=== PATIENT | male | born 1955 | race Caucasian/White ===

== ENCOUNTER 2021-12-13 10:04 | Inpatient (IN) | payer BC ==
[~2021-12-13] VITALS: Ht 172.7 cm; Wt 115.9 kg
[2021-12-13 10:26] LABS: BASOPHILS % (AUTO) 0.8 % (0-1); EOSINOPHILS # (AUTO) 0.2 X10'3 (0-0.9); EOSINOPHILS % (AUTO) 3.6 % (0-6); HEMATOCRIT 46.7 % (42.0-52.0); HEMOGLOBIN 15.8 g/dl (14.0-17.9); LYMPHOCYTES # (AUTO) 1.1 X10'3 (1.1-4.8); LYMPHOCYTES % (AUTO) 21.4 % (21-51); MEAN CORPUSCULAR HEMOGLOBIN 31.5 PG (27.0-31.0); MEAN CORPUSCULAR HGB CONC 33.8 g/dL (33.0-36.5); MEAN CORPUSCULAR VOLUME 93.2 FL (78-98); MEAN PLATELET VOLUME 8.5 FL (7.4-10.4); MONOCYTES # (AUTO) 0.6 X10'3 (0-0.9); MONOCYTES % (AUTO) 11.8 % (2-12); NEUTROPHILS # (AUTO) 3.3 X10'3 (1.8-7.7); NEUTROPHILS % (AUTO) 62.4 % (42-75); PLATELET COUNT 192 X10'3 (140-440); RED BLOOD COUNT 5.01 X10'6 (4.70-6.10); RED CELL DISTRIBUTION WIDTH 12.9 % (11.5-14.5); WHITE BLOOD COUNT 5.2 X10'3 (4.5-11.0)
[2021-12-13 10:45] LABS: APTT 28 SECONDS (22-32)
[2021-12-13 10:48] LABS: ALANINE AMINOTRANSFERASE 96 U/L (12-78); ALBUMIN 4.1 G/DL (3.4-5.0); ALBUMIN/GLOBULIN RATIO 1.1 (1.1-1.5); ALKALINE PHOSPHATASE 86 IU/L (46-116); ANION GAP 11 (8-16); ASPARTATE AMINO TRANSFERASE 39 U/L (10-37); BILIRUBIN,TOTAL 0.5 MG/DL (0.1-1.0); BLOOD UREA NITROGEN 17 MG/DL (7-18); CALCIUM 9.3 MG/DL (8.5-10.1); CHLORIDE 106 MMOL/L (99-107); CREATININE 0.85 MG/DL (0.60-1.10); GLUCOSE 108 MG/DL (70-104); SODIUM 141 MMOL/L (135-145); TOTAL CARBON DIOXIDE 23.6 MMOL/L (24-32); TOTAL PROTEIN 7.8 G/DL (6.4-8.2); eGFR > 90 ML/MIN
[2021-12-13 10:54] LABS: POTASSIUM 4.2 MMOL/L (3.5-5.1)
[2021-12-13] MEDS ORDERED: potassium CL 10mEq/100ml bag 100 ML IV PRN (11:35)
[2021-12-13] MEDS ORDERED: magnesium hydroxide 30ml (MOM) UD suspension PO PRN (11:35)
[2021-12-13] MEDS ORDERED: magnesium 4gm in 100ml NS 100 ML IV PRN (11:35)
[2021-12-13] MEDS ORDERED: PERFLUTREN PROTEIN-A MICROSPHR (Optison) 0.22 MG/ML 3ML VIAL IV ONE (11:35)
[2021-12-13] MEDS ORDERED: acetaminophen 325mg tablet PO PRN ×2 (11:35)
[2021-12-13] MEDS ORDERED: metoclopramide 5 mg/ml inj IV PRN (11:35)
[2021-12-13] MEDS ORDERED: magnesium Cl slow-release 64mg tablet PO PRN (11:35)
[2021-12-13] MEDS ORDERED: morphine 2 MG/ML inj. syringe IV PRN ×2 (11:35)
[2021-12-13] MEDS ORDERED: mag hydrox/Alum hydrox/simeth 30ml oral suspension PO PRN (11:35)
[2021-12-13] MEDS ORDERED: bisacodyl 10mg suppository rectal RC PRN (11:35)
[2021-12-13] MEDS ORDERED: ondansetron/PF 4mg/2ml inj IV PRN (11:35)
[2021-12-13] MEDS ORDERED: acetaminophen 650mg rectal suppository RC PRN (11:35)
[2021-12-13] MEDS ORDERED: HYDROcodone/acetaminophen 5mg/325mg tablet PO PRN (11:35)
[2021-12-13] MEDS ORDERED: HYDROcodone/acetaminophen 10/325mg tab PO PRN (11:35)
[2021-12-13] MEDS ORDERED: POTASSIUM BICARB 20meq eff tab 20 MEQ TABLET.EFF PO PRN ×2 (11:35)
[2021-12-13] MEDS ORDERED: magnesium 2GM in 50ml NS 50 ML IV PRN (11:35)
[2021-12-13] MEDS ORDERED: ondansetron 4mg rapidly disintigrating tab PO PRN (11:35)
[2021-12-13] MEDS ORDERED: IODIXANOL 320 MG/ML INFUS..BTL 100ML IV ONE (11:54)
[2021-12-13 12:04] LABS: CLARITY,URINE CLEAR (Clear); COLOR,URINE YELLOW (Yellow); GLUCOSE, URINE NEGATIVE (Neg); KETONES,URINE NEGATIVE (Neg); LEUKOCYTE ESTERASE ,URINE NEGATIVE (Neg); NITRITES, URINE NEGATIVE (Neg); OCCULT BLOOD,URINE NEGATIVE (Neg); PROTEIN,URINE NEGATIVE (Neg); UROBILINOGEN,URINE 0.2 E.U/dL (0.2-1.0)
[2021-12-13 12:05] LABS: UA COLLECTION TYPE CLN CATCH MIDSTREAM
--- NOTE | 2021-12-13 12:15 | NUR ---
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
--- NOTE | 2021-12-13 12:47 | NUR ---
dr yuan at bedside.
[2021-12-13 13:39] LABS: MAGNESIUM 2.2 MG/DL (1.5-2.4); POTASSIUM 3.8 MMOL/L (3.5-5.1)
[2021-12-13] MEDS ORDERED: OLME1TAB54 PO (13:53)
[2021-12-13 17:02] VITALS: BP 151/89
--- NOTE | 2021-12-13 17:17 | NUR ---
Skin assessment performed with 2 nurses no skin issues present AK DIRECTOR EDUCATION and CW RN
[2021-12-13 18:00] VITALS: BP 158/79
--- NOTE | 2021-12-13 18:49 | NUR ---
Orientee documentation: I have reviewed and agree with all interventions, assessments performed and documented by MEME Blum II.
--- NOTE | 2021-12-13 19:10 | NUR ---
Patient in room PCU 3014. I have received report from Giovana TESFAYE and had the opportunity to ask questions and assume patient care.
[2021-12-13] MEDS: heparin, porcine 5000 units/ml vial SQ SCH (19:28)
[2021-12-13] MEDS: docusate sod 100mg capsule PO SCH (19:28)
[2021-12-13] MEDS: K and/or MAG REPLACEMENT MC SCH (20:00)
[2021-12-13] MEDS ORDERED: temazepam 15mg capsule PO PRN (21:00)
[2021-12-13 22:00] VITALS: BP 146/43
[2021-12-14] VITALS (12 sets, daily range): BP systolic 125–162; BP diastolic 70–96
--- NOTE | 2021-12-14 06:20 | NUR ---
Problems reprioritized. Patient report given, questions answered & plan of care reviewed with toño.
--- NOTE | 2021-12-14 06:47 | NUR ---
Patient in room PCU 3014. I have received report from Daine TESFAYE and had the opportunity to ask questions and assume patient care.
[2021-12-14 07:30] LABS: BASOPHILS % (AUTO) 0.7 % (0-1); EOSINOPHILS # (AUTO) 0.2 X10'3 (0-0.9); HEMATOCRIT 44.4 % (42.0-52.0); LYMPHOCYTES # (AUTO) 0.8 X10'3 (1.1-4.8); LYMPHOCYTES % (AUTO) 17.1 % (21-51); MEAN CORPUSCULAR HEMOGLOBIN 31.2 PG (27.0-31.0); MEAN CORPUSCULAR HGB CONC 33.7 g/dL (33.0-36.5); MEAN CORPUSCULAR VOLUME 92.6 FL (78-98); MEAN PLATELET VOLUME 8.8 FL (7.4-10.4); MONOCYTES # (AUTO) 0.6 X10'3 (0-0.9); MONOCYTES % (AUTO) 13.4 % (2-12); NEUTROPHILS % (AUTO) 64.8 % (42-75); PLATELET COUNT 179 X10'3 (140-440); RED BLOOD COUNT 4.79 X10'6 (4.70-6.10); RED CELL DISTRIBUTION WIDTH 13.2 % (11.5-14.5); WHITE BLOOD COUNT 4.6 X10'3 (4.5-11.0)
[2021-12-14 07:54] LABS: ALANINE AMINOTRANSFERASE 86 U/L (12-78); ALBUMIN 3.7 G/DL (3.4-5.0); ALBUMIN/GLOBULIN RATIO 1.1 (1.1-1.5); ALKALINE PHOSPHATASE 68 IU/L (46-116); ANION GAP 10 (8-16); ASPARTATE AMINO TRANSFERASE 27 U/L (10-37); BILIRUBIN,TOTAL 0.5 MG/DL (0.1-1.0); BLOOD UREA NITROGEN 16 MG/DL (7-18); BUN/CREATININE RATIO 17.2 (5.4-32.0); CALCIUM 8.6 MG/DL (8.5-10.1); CHLORIDE 107 MMOL/L (99-107); CHOL/HDL RATIO 5.1 (0.00-4.99); CHOLESTEROL 230 MG/DL (0-200); CREATININE 0.93 MG/DL (0.60-1.10); GLUCOSE 97 MG/DL (70-104); HDL CHOLESTEROL 45 MG/DL (35-60); LDL CHOLESTEROL 148 MG/DL (50-100); MAGNESIUM 2.3 MG/DL (1.5-2.4); POTASSIUM 3.9 MMOL/L (3.5-5.1); SODIUM 142 MMOL/L (135-145); TOTAL CARBON DIOXIDE 25.1 MMOL/L (24-32); TRIGLYCERIDES 134 MG/DL (20-135); eGFR 82 ML/MIN
[2021-12-14] MEDS ORDERED: aminophylline 250mg/10ml inj. IV PRN (08:00)
[2021-12-14] MEDS ORDERED: metoprolol tartrate 1mg/ml inj IV PRN (08:00)
[2021-12-14] MEDS ORDERED: nitroGLYCERIN 0.4mg SUBLingual tab SL PRN (08:00)
[2021-12-14] MEDS: K and/or MAG REPLACEMENT MC SCH ×2 (08:00→20:00)
[2021-12-14] MEDS ORDERED: regadenoson 0.4mg/5ml syringe IV PRN (08:00)
[2021-12-14] MEDS: docusate sod 100mg capsule PO SCH ×2 (09:35→20:00)
[2021-12-14] MEDS: aspirin 325mg tablet PO SCH (09:35)
[2021-12-14] MEDS ORDERED: aminophylline 500mg/20ml vial ONE (11:36)
[2021-12-14] MEDS: heparin, porcine 5000 units/ml vial SQ SCH ×2 (12:54→20:00)
--- NOTE | 2021-12-14 15:29 | NUR ---
Paged Dr. Ruano asking if patient can eat and NPO after midnight. PAGER ID: [phone] MESSAGE: [id number], Ana Melendez. I saw you ordered a heart healthy diet, can the patient have something to eat right now? Milka [facility] [id number].
--- NOTE | 2021-12-14 18:30 | NUR ---
Patient in room PCU 3014. I have received report from Milka TESFAYE and had the opportunity to ask questions and assume patient care.
--- NOTE | 2021-12-14 18:42 | NUR ---
Problems reprioritized. Patient report given, questions answered & plan of care reviewed with Diane RN, pt stable at transfer of care.
[2021-12-15] VITALS (11 sets, daily range): BP systolic 112–165; BP diastolic 62–94
--- NOTE | 2021-12-15 06:32 | NUR ---
Problems reprioritized. Patient report given, questions answered & plan of care reviewed with Tabitha TESFAYE.
[2021-12-15 06:49] LABS: BASOPHILS % (AUTO) 0.7 % (0-1); EOSINOPHILS # (AUTO) 0.2 X10'3 (0-0.9); EOSINOPHILS % (AUTO) 3.7 % (0-6); HEMATOCRIT 45.5 % (42.0-52.0); HEMOGLOBIN 15.4 g/dl (14.0-17.9); LYMPHOCYTES # (AUTO) 0.9 X10'3 (1.1-4.8); MEAN CORPUSCULAR HEMOGLOBIN 31.1 PG (27.0-31.0); MEAN CORPUSCULAR HGB CONC 33.9 g/dL (33.0-36.5); MEAN CORPUSCULAR VOLUME 91.8 FL (78-98); MEAN PLATELET VOLUME 8.5 FL (7.4-10.4); MONOCYTES # (AUTO) 0.6 X10'3 (0-0.9); MONOCYTES % (AUTO) 14.2 % (2-12); NEUTROPHILS # (AUTO) 2.7 X10'3 (1.8-7.7); NEUTROPHILS % (AUTO) 61.4 % (42-75); PLATELET COUNT 172 X10'3 (140-440); RED BLOOD COUNT 4.96 X10'6 (4.70-6.10); RED CELL DISTRIBUTION WIDTH 12.9 % (11.5-14.5); WHITE BLOOD COUNT 4.5 X10'3 (4.5-11.0)
[2021-12-15 07:04] LABS: ALANINE AMINOTRANSFERASE 79 U/L (12-78); ALBUMIN 3.7 G/DL (3.4-5.0); ALBUMIN/GLOBULIN RATIO 0.9 (1.1-1.5); ALKALINE PHOSPHATASE 66 IU/L (46-116); ANION GAP 11 (8-16); ASPARTATE AMINO TRANSFERASE 31 U/L (10-37); BILIRUBIN,TOTAL 0.6 MG/DL (0.1-1.0); BLOOD UREA NITROGEN 17 MG/DL (7-18); BUN/CREATININE RATIO 18.3 (5.4-32.0); CALCIUM 8.7 MG/DL (8.5-10.1); CHLORIDE 104 MMOL/L (99-107); CREATININE 0.93 MG/DL (0.60-1.10); GLUCOSE 104 MG/DL (70-104); MAGNESIUM 2.3 MG/DL (1.5-2.4); POTASSIUM 3.9 MMOL/L (3.5-5.1); SODIUM 140 MMOL/L (135-145); TOTAL CARBON DIOXIDE 24.9 MMOL/L (24-32); TOTAL PROTEIN 7.6 G/DL (6.4-8.2); eGFR 82 ML/MIN
[2021-12-15] MEDS: docusate sod 100mg capsule PO SCH ×2 (07:09→19:52)
[2021-12-15] MEDS: heparin, porcine 5000 units/ml vial SQ SCH ×2 (07:09→19:55)
[2021-12-15] MEDS: K and/or MAG REPLACEMENT MC SCH ×2 (08:00→19:50)
[2021-12-15] MEDS ORDERED: atorvastatin 20mg tablet PO SCH (08:00)
[2021-12-15] MEDS: metoprolol succinate 25mg (24-HOUR) SR. Tablet PO SCH (08:07)
[2021-12-15] MEDS: aspirin 325mg tablet PO SCH (08:30)
[2021-12-15] MEDS ORDERED: verapamil 2.5 mg/ml inj IV ONE (11:52)
[2021-12-15] MEDS ORDERED: fentaNYL/PF 50MCG/1 ML 2ML syringe ONE (11:52)
[2021-12-15] MEDS ORDERED: heparin 1,000unit/ml 10ml vial 10 ML ONE ×2 (11:52→13:59)
[2021-12-15] MEDS ORDERED: nitroGLYCERIN-Tridil 50MG/D5W 250 ML IV ONE (11:52)
[2021-12-15] MEDS ORDERED: midazolam 1 mg/ML 2ml injection ONE ×2 (11:52→13:46)
[2021-12-15] MEDS ORDERED: LIDOCAINE 1% w/preservative (10 MG/ML) inj. 10mL VIAL ONE (11:52)
[2021-12-15] MEDS ORDERED: iohexol 350MG/ML 100ml bottle IV ONE ×2 (11:53→13:54)
[2021-12-15] MEDS ORDERED: aspirin 325mg tablet ONE (13:57)
[2021-12-15] MEDS ORDERED: clopidogrel 300mg tablet ONE (13:57)
[2021-12-15 15:40] LABS: CHOL/HDL RATIO 4.6 (0.00-4.99); CHOLESTEROL 231 MG/DL (0-200); HDL CHOLESTEROL 50 MG/DL (35-60); LDL CHOLESTEROL 159 MG/DL (50-100); TRIGLYCERIDES 104 MG/DL (20-135)
[2021-12-16 02:00] VITALS: BP 119/80
--- NOTE | 2021-12-16 06:00 | NUR ---
Patient in room PCU 3014. I have received report from night nurse and had the opportunity to ask questions and assume patient care.
[2021-12-16] MEDS: docusate sod 100mg capsule PO SCH (06:35)
[2021-12-16] MEDS: heparin, porcine 5000 units/ml vial SQ SCH (06:36)
[2021-12-16 06:54] LABS: BASOPHILS % (AUTO) 0.5 % (0-1); EOSINOPHILS # (AUTO) 0.2 X10'3 (0-0.9); EOSINOPHILS % (AUTO) 3.2 % (0-6); HEMATOCRIT 44.1 % (42.0-52.0); LYMPHOCYTES # (AUTO) 0.7 X10'3 (1.1-4.8); LYMPHOCYTES % (AUTO) 14.7 % (21-51); MEAN CORPUSCULAR HEMOGLOBIN 31.1 PG (27.0-31.0); MEAN CORPUSCULAR VOLUME 91.7 FL (78-98); MEAN PLATELET VOLUME 8.7 FL (7.4-10.4); MONOCYTES # (AUTO) 0.6 X10'3 (0-0.9); MONOCYTES % (AUTO) 12.8 % (2-12); NEUTROPHILS # (AUTO) 3.4 X10'3 (1.8-7.7); NEUTROPHILS % (AUTO) 68.8 % (42-75); PLATELET COUNT 171 X10'3 (140-440); RED BLOOD COUNT 4.81 X10'6 (4.70-6.10); RED CELL DISTRIBUTION WIDTH 13.2 % (11.5-14.5); WHITE BLOOD COUNT 4.9 X10'3 (4.5-11.0)
[2021-12-16 07:00] VITALS: BP 136/88
[2021-12-16 07:07] LABS: ALANINE AMINOTRANSFERASE 87 U/L (12-78); ALBUMIN 3.6 G/DL (3.4-5.0); ALBUMIN/GLOBULIN RATIO 1.1 (1.1-1.5); ALKALINE PHOSPHATASE 60 IU/L (46-116); ANION GAP 8 (8-16); ASPARTATE AMINO TRANSFERASE 33 U/L (10-37); BILIRUBIN,TOTAL 0.6 MG/DL (0.1-1.0); BLOOD UREA NITROGEN 16 MG/DL (7-18); CALCIUM 8.5 MG/DL (8.5-10.1); CHLORIDE 108 MMOL/L (99-107); CREATININE 0.94 MG/DL (0.60-1.10); GLUCOSE 103 MG/DL (70-104); MAGNESIUM 2.5 MG/DL (1.5-2.4); SODIUM 140 MMOL/L (135-145); TOTAL CARBON DIOXIDE 24.1 MMOL/L (24-32); TOTAL PROTEIN 6.9 G/DL (6.4-8.2); eGFR 81 ML/MIN
--- NOTE | 2021-12-16 07:17 | NUR ---
PAGER ID: [phone] MESSAGE: [id number] Al Perez: Pt has 2 different aspirins ordered this morning - 81mg and 325mg. Do you want him to have both? Julia - [facility] Ext [phone]
[2021-12-16] MEDS ORDERED: ASPI-1071 PO (07:52)
[2021-12-16] MEDS ORDERED: METO-395 PO (07:52)
[2021-12-16] MEDS ORDERED: CLOP75TA34 PO (07:52)
[2021-12-16] MEDS ORDERED: ATOR20TA66 PO (07:52)
[2021-12-16] MEDS: K and/or MAG REPLACEMENT MC SCH (08:00)
[2021-12-16] MEDS ORDERED: aspirin 81mg, enteric-coated 1 TAB TABLET.DR PO SCH (08:00)
[2021-12-16] MEDS ORDERED: clopidogrel 75mg tablet PO SCH (08:00)
[2021-12-16] MEDS ORDERED: atorvastatin 20mg tablet PO SCH (08:00)
[2021-12-16] MEDS: metoprolol succinate 25mg (24-HOUR) SR. Tablet PO SCH (08:34)
[2021-12-16 11:00] VITALS: BP 121/87
--- NOTE | 2021-12-16 12:30 | NUR ---
Discharge paperwork reviewed, questions answered. Both PIV's removed, catheters intact. Patient walked down to lobby with . Left [facility] in stable condition,.
== END 2021-12-16 11:45 | disposition home or self-care (01) | DRG 247 ==
LOC: ER 10:05 → ED HOLD 11:38 → PCU 3S 16:45
PROVIDERS: ADMIT Family Medicine; ATTEND Family Medicine
PROC: B3251ZZ Computerized Tomography (CT Scan) of Bilateral Common Carotid Arteries using Low Osmolar Contrast (ICD-10-PCS; 2021-12-13)
PROC: B32G1ZZ Computerized Tomography (CT Scan) of Bilateral Vertebral Arteries using Low Osmolar Contrast (ICD-10-PCS; 2021-12-13)
PROC: B32R1ZZ Computerized Tomography (CT Scan) of Intracranial Arteries using Low Osmolar Contrast (ICD-10-PCS; 2021-12-13)
PROC: B3281ZZ Computerized Tomography (CT Scan) of Bilateral Internal Carotid Arteries using Low Osmolar Contrast (ICD-10-PCS; 2021-12-13)
PROC: 5A09357 Assistance with Respiratory Ventilation, Less than 24 Consecutive Hours, Continuous Positive Airway Pressure (ICD-10-PCS; 2021-12-14)
PROC: 4A02XM4 Measurement of Cardiac Total Activity, External Approach (ICD-10-PCS; 2021-12-14)
PROC: 3E033HZ Introduction of Radioactive Substance into Peripheral Vein, Percutaneous Approach (ICD-10-PCS; 2021-12-14)
PROC: 4A023N7 Measurement of Cardiac Sampling and Pressure, Left Heart, Percutaneous Approach (ICD-10-PCS; principal; 2021-12-15)
PROC: 027034Z Dilation of Coronary Artery, One Artery with Drug-eluting Intraluminal Device, Percutaneous Approach (ICD-10-PCS; 2021-12-15)
PROC: B2111ZZ Fluoroscopy of Multiple Coronary Arteries using Low Osmolar Contrast (ICD-10-PCS; 2021-12-15)
PROC: B2151ZZ Fluoroscopy of Left Heart using Low Osmolar Contrast (ICD-10-PCS; 2021-12-15)
PROC: 5A09357 Assistance with Respiratory Ventilation, Less than 24 Consecutive Hours, Continuous Positive Airway Pressure (ICD-10-PCS; 2021-12-15)
DX: I25.119 Atherosclerotic heart disease of native coronary artery with unspecified angina pectoris (principal); E66.3 Overweight; E78.5 Hyperlipidemia, unspecified; F43.9 Reaction to severe stress, unspecified; R20.2 Paresthesia of skin; R74.01 Elevation of levels of liver transaminase levels; G47.33 Obstructive sleep apnea (adult) (pediatric); I10 Essential (primary) hypertension; Z79.899 Other long term (current) drug therapy; Z87.891 Personal history of nicotine dependence; Z68.38 Body mass index [BMI] 38.0-38.9, adult; Z72.89 Other problems related to lifestyle
CPT/HCPCS: 93306; 93458; 99285; C9600; 36415; 70450; 70496; 70498; 70551; 71045; 76700; 78452; 80053; 80061; 81003; 82948; 83735; 83880; 84132; 84484; 85025; 85610; 85730; 87081; 93005; 93017; 99152; 99153; A4620; A5120; A9500; C1725; C1751; C1769; C1874; C1892; C1894; G0378; J0280; J1644; J2250; J2785; J3010; J3490; Q9967